=== PATIENT | female | born 1995 | race Two or more races ===

== ENCOUNTER 2017-11-02 12:56 | Inpatient (IN) | payer MEDICAID ==
[~2017-11-02] VITALS: Ht 172.7 cm; Wt 77.6 kg
[2017-11-02] MEDS ORDERED: ONDANSETRON HCL/PF 4 MG/2 ML VIAL ONE (12:59)
[2017-11-02] MEDS ORDERED: ONDANSETRON HCL/PF 4 MG/2 ML VIAL IVP ONE (13:00)
[2017-11-02] MEDS ORDERED: IV NS 0.9% 1,000 ML BAG IV ONE (13:00)
[2017-11-02] MEDS ORDERED: MORPHINE SULFATE INJ 2 MG/ML DISP.SYRIN IV ONE ×2 (13:00→13:30)
[2017-11-02] MEDS ORDERED: MORPHINE SULFATE INJ 4 MG/ML DISP.SYRIN ONE ×2 (13:00→13:27)
--- NOTE | 2017-11-02 13:00 | NUR ---
PT CAME IN WITH C/O DIFFUSED ABD PAIN WITH VOMTING X 2 HOURS. DENIES TRAUMA AND OTEHR SYMPTOMS. SEEN BY COMPUTER GRAPHICS ILLUSTRATOR FOR EVAL. VSS. SAFETY AND COMFORT MEASURES PROVIDED. WILL MONITOR.
[2017-11-02 13:15] LABS: BASOPHILS # (AUTO) 0.1 /CMM (0.0-0.2); BASOPHILS % (AUTO) 0.6 % (0.0-2.0); EOSINOPHILS % (AUTO) 0.2 % (0.0-6.0); HEMATOCRIT 41 % (33-45); LYMPHOCYTES # (AUTO) 1.9 /CMM (0.8-4.8); LYMPHOCYTES % (AUTO) 9.8 % (20.0-44.0); MEAN CORPUSCULAR HEMOGLOBIN 31 PG (26.0-33.0); MEAN CORPUSCULAR HGB CONC 35 g/dl (31.0-36.0); MEAN CORPUSCULAR VOLUME 89 fL (82-100); MONOCYTES # (AUTO) 0.7 /CMM (0.1-1.30); MONOCYTES % (AUTO) 3.6 % (2.0-12.0); NEUTROPHILS # (AUTO) 16.8 /CMM (1.8-8.9); NEUTROPHILS % (AUTO) 85.8 % (43.0-81.0); PLATELET COUNT (AUTO) 410 /CMM (150-450); RDW COEFFICIENT OF VARIATION 12.9 (11.5-15.0); RED BLOOD CELL COUNT(AUTO) 4.58 MIL/uL (4.0-5.2); WHITE BLOOD COUNT (AUTO) 19.5 K/uL (4.3-11.0)
--- NOTE | 2017-11-02 13:15 | NUR ---
IV ACCESS STARTED. BLOOD DRAWN FOR LABS. MEDICATED ORDERED.
[2017-11-02 13:26] LABS: CALCIUM, SERUM 9.9 mg/dL (8.5-10.1); CREATININE 0.5 mg/dL (0.6-1.3); POTASSIUM 4.3 mmol/L (3.5-5.1)
[2017-11-02 13:27] LABS: INR 0.89 (0.87-1.13); PROTHROMBIN TIME 9.3 SECS (9.5-12.7)
[2017-11-02] MEDS ORDERED: FAMOTIDINE/PF INJ 20 MG/2 ML VIAL IV ONE ×2 (13:27→13:30)
[2017-11-02 13:37] LABS: ALBUMIN 4.6 g/dL (3.4-5.0); BILIRUBIN,TOTAL 0.2 mg/dL (0.2-1.0); TOTAL PROTEIN, SERUM 9.1 g/dL (6.4-8.2)
[2017-11-02] MEDS ORDERED: IOHEXOL-300 100 ML VIAL IV ONE (13:50)
[2017-11-02] MEDS ORDERED: IV NS 0.9% 250 ML IV ONE (13:50)
[2017-11-02 14:04] LABS: APPEARANCE,URINE Clear (CLEAR); BILIRUBIN,URINE Negative (NEGATIVE); BLOOD, URINE Negative Ery/uL (NEGATIVE); COLOR,URINE Yellow (YELLOW); KETONES,URINE Negative (NEGATIVE); LEUKOCYTE ESTERASE ,URINE Small (NEGATIVE); NITRITE, URINE Negative (NEGATIVE); PH,URINE 6.5 (5.0-8.0); PROTEIN,URINE 30 mg/dl (NEGATIVE); UGLUCOSE Negative (NEGATIVE); UROBILINOGEN,URINE 0.2 EU/dL (0.2)
--- NOTE | 2017-11-02 14:45 | NUR ---
PT TAKEN TO CT.
[2017-11-02] MEDS ORDERED: HYDROMORPHONE INJ 2 MG/ML DISP.SYRIN ONE ×2 (14:54→16:29)
[2017-11-02 14:56] LABS: BACTERIA,URINE Few /HPF (None Seen); SQUAMOUS EPITHELIAL CELL,UR Few /HPF (None Seen)
[2017-11-02] MEDS ORDERED: HYDROMORPHONE 1 MG/1 ML DISP.SYRIN IV ONE ×2 (15:00→16:30)
--- NOTE | 2017-11-02 15:50 | NUR ---
HEATH AT BS.
--- NOTE | 2017-11-02 16:25 | NUR ---
CALLED , TRANSFERRED CALL TO MARICARMEN GRIFFITH NP.
--- NOTE | 2017-11-02 16:27 | NUR ---
CALLED DR.SAM GARCIA, TRANSFERRED CALL TO MARICARMEN GRIFFITH NP.
[2017-11-02] MEDS ORDERED: METOCLOPRAMIDE HCL 10 MG/2 ML VIAL ONE (16:29)
[2017-11-02] MEDS ORDERED: METOCLOPRAMIDE HCL 10 MG/2 ML VIAL IV ONE (16:30)
[2017-11-02] MEDS ORDERED: IV D5/0.45 NACL 1,000 ML IV ONE (16:30)
[2017-11-02] MEDS ORDERED: PIPERACILLIN /TAZOBACTAM 3.375 G in IV D5W 50 ML IV ONE (16:30)
--- NOTE | 2017-11-02 16:32 | NUR ---
EPIC PAGED, AIRPLANE CAPTAIN
--- NOTE | 2017-11-02 16:50 | NUR ---
AMBULETTE DRIVER AT FOR BLOOD CULTURE DRAW.
[2017-11-02] MEDS ORDERED: MAGNESIUM HYDROXIDE 30 ML UDC PO PRN (17:30)
[2017-11-02] MEDS ORDERED: ZOLPIDEM TARTRATE 5 MG TABLET PO PRN (17:30)
[2017-11-02] MEDS ORDERED: Z GUARD REMEDY 2 OZ OINT TP PRN (17:30)
[2017-11-02] MEDS ORDERED: ACETAMINOPHEN 325 MG TABLET PO PRN (17:30)
[2017-11-02] MEDS ORDERED: MAG HYDROX/AL HYDROX/SIMETH 30 ML UDC PO PRN (17:30)
--- NOTE | 2017-11-02 17:30 | NUR ---
DR. EDWARDS AT BS.
[2017-11-02] MEDS: ENOXAPARIN SODIUM 40 MG/0.4 ML DISP.SYRIN SQ SCH (18:00)
--- NOTE | 2017-11-02 18:05 | NUR ---
REPORT GIVEN TO BETTY PALAFOX FOR MS 317.
--- NOTE | 2017-11-02 18:30 | NUR ---
MS RN NOTES PATIENT ARRIVED ON GURNEY. ALERT, ORIENTED X3 NO SOB OR ACUTE DISTRESS NOTED. PATIENT DENIES ANY PAIN AT THIS TIME. PATIENT ORIENTED TO ROOM , CALL LIGHT WITHIN REACH. BED IN LOW LOCKED POSITION. LOVENOX NOT ADMINISTERED WAITING FOR SURGICAL CONSULT. PATIENT NPO WAITING FOR SURGICAL CONSULT. WILL CONTINUE TO MONITOR.
[2017-11-02] MEDS: IV NS 0.9% 1,000 ML IV PRN (18:47)
--- NOTE | 2017-11-02 19:00 | NUR ---
MS RN NOTES PATIENT IN BED RESTING. DENIES ANY PAIN OR DISCOMFORT. WILL ENDORSE CARE TO PM SHIFT.
--- NOTE | 2017-11-02 19:30 | NUR ---
MS RN OPENING NOTES: RECEIVED PT IN BED AND IS A/OX4. PT HAS IV ON R HAND #20G AND IS BEING INFUSED WITH NS AT 75ML/HR. PT REMAINING NPO FOR NOW. WAITING FOR GYNECOLOGY CONSULT. PER NOTES, NO SURGERY BY DR. PACK FOR NOW. DR Suzi GARCIA ALREADY SAW HER AND NO SURGERY AT THIS TIME. CALL LIGHT WITHIN PT'S REACH. BED KEPT IN LOW, LOCKED POSITION, AND SIDE RAILS X 2 UP. WILL CONTINUE TO MONITOR PT.
--- NOTE | 2017-11-02 19:35 | NUR ---
MS RN NOTES: DR. Desirae GARCIA AT BEDSIDE.
[2017-11-02 20:00] VITALS: BP 115/69
[2017-11-02] MEDS: HYDROMORPHONE INJ 2 MG/ML DISP.SYRIN IV PRN (20:16)
--- NOTE | 2017-11-02 20:18 | NUR ---
MS RN NOTES: PT IS COMPLAINING OF 8/10 PAIN AROUND HER ABDOMINAL AREA. VITAL SIGNS STABLE. PT WAS ADMINISTERED DILAUDID 1MG VIA IV. WILL CONTINUE TO MONITOR PT.
[2017-11-02] MEDS: ONDANSETRON HCL/PF 4 MG/2 ML VIAL IVP PRN (22:18)
--- NOTE | 2017-11-02 22:22 | NUR ---
MS RN NOTES: PT FOUND IN ROOM HAVING A VOMITING EPISODE. PT WAS GIVEN ZOFRAN VIA IV .WILL CONTINUE TO MONITOR PT.
--- NOTE | 2017-11-03 00:10 | NUR ---
MS RN NOTES: SPOKE WITH CHIMNEY BUILDER HELPER CLIFTON CARCAMO TO CONFIRM IF PT CAN BE PUT ON A DIET SINCE DR. Desirae GARCIA SAID NO SURGERY INDICATED FOR NOW. ALSO INFORMED HER THAT PLUMBER APPRENTICE HASN'T SEEN HER FOR TONIGHT.
[2017-11-03 00:25] VITALS: BP 117/61
[2017-11-03] MEDS: HYDROMORPHONE INJ 2 MG/ML DISP.SYRIN IV PRN ×4 (00:26→14:06)
--- NOTE | 2017-11-03 02:48 | NUR ---
MS RN NOTES: LESLEY CARCAMO ON FLOOR. INFORMED HER OF ELEVATED WBC.
--- NOTE | 2017-11-03 02:53 | NUR ---
MS RN NOTES: LESLEY CARCAMO PUT IN ORDERS FOR LEVAQUIN AND FLAGYL.
[2017-11-03] MEDS ORDERED: LEVOFLOXACIN 500 MG /D5W 100ML 100 ML IV ONE (02:56)
[2017-11-03] MEDS: LEVOFLOXACIN 500 MG /D5W 100ML 500 MG in PREMIX 1 EA IV SCH (03:02)
--- NOTE | 2017-11-03 03:07 | NUR ---
MS RN NOTES: PT'S IPHONE BROUGHT TO NURSING STATION TO BE CHARGED.
--- NOTE | 2017-11-03 04:52 | NUR ---
MS RN NOTES: PT'S IPHONE FROM NURSING STATION RETURNED TO PT.
[2017-11-03 05:20] VITALS: BP 131/76
[2017-11-03] MEDS ORDERED: METRONIDAZOLE 500MG/ NS 100ML 100 ML IV ONE (05:20)
[2017-11-03] MEDS: ONDANSETRON HCL/PF 4 MG/2 ML VIAL IVP PRN ×2 (05:28→15:11)
--- NOTE | 2017-11-03 05:30 | NUR ---
MS RN NOTES: PT COMPLAINING OF 10/10 ABDOMINAL AREA. PT SEEN CRYING. VITAL SIGNS CHECKED. PT WAS ADMINISTERED DILAUDID VIA IV. WILL CONTINUE TO MONITOR PT.
--- NOTE | 2017-11-03 05:34 | NUR ---
MS RN NOTES: PT REPORTED THAT SHE HAD YELLOW, LIQUIDY EMESIS. PT WAS ADMINISTERED ZOFRAN VIA IV. WILL CONTINUE TO MONITOR PT.
[2017-11-03] MEDS: METRONIDAZOLE 500MG/ NS 100ML 500 MG in PREMIX 1 EA IV SCH ×3 (05:44→18:30)
[2017-11-03] MEDS ORDERED: HYDROMORPHONE 1 MG/1 ML DISP.SYRIN ONE (06:33)
--- NOTE | 2017-11-03 06:33 | NUR ---
MS RN NOTES: SPOKE TO LESLEY CARCAMO AND INFORMED HER THAT PT JUST GOT DILAUDID 1 MG AN HOUR AGO AND NOW PATIENT IS CRYING OF 10/10 PAIN IN HER ABDOMEN. GOT ONE TIME ORDER FOR DILAUDID 1MG IV. WILL CONTINUE TO MONITOR PT.
--- NOTE | 2017-11-03 06:35 | NUR ---
MS RN NOTES: PT COMPLAINING THAT SHE CANNOT BREATHE. PT WAS PLACED ON 2LPM VIA NC FOR COMFORT MEASURES. WILL CONTINUE TO MONITOR PT.
[2017-11-03 06:40] VITALS: BP 115/67
[2017-11-03] MEDS ORDERED: HYDROMORPHONE 1 MG/1 ML DISP.SYRIN IV ONE (07:00)
--- NOTE | 2017-11-03 07:15 | NUR ---
MS RN CLOSING NOTES: ALL NEEDS WERE ATTENDED AND ANTICIPATED FOR. PT IS ASLEEP AND RESTING IN BED COMFORTABLY. PT HAS 2LPM VIA NC FOR COMFORT MEASURES AND IS TOLERATING WELL. PT HAS IV ON R HAND #20G AND IS BEING INFUSED WITH NS AT 75ML/HR. CALL LIGHT WITHIN PT'S REACH. BED KEPT IN LOW, LOCKED POSITION, AND SIDE RAILS X 2 UP. ENDORSED TO AM NURSE FOR DARSHAN.
[2017-11-03 08:00] VITALS: BP 104/52
--- NOTE | 2017-11-03 08:00 | NUR ---
MS RN OPENING NOTES PATIENT LYING IN BED WATCHING TV, ALERT, ORIENTED . NO ACUTE DISTRESS NOTED. NO SOB NOTED. BREATHING REGULAR EVEN AND UNLABORED. IV ACCES ON RIGHT HAND PATENT AND INTACT. NO REDNESS, NO S/SX OF INFILTRATION NOTED. SAFETY MEASURES IN PLACE. CALL LIGHT PLACED WITHIN REACH. WILL CONTINUE TO MONITOR ACCORDINGLY.
[2017-11-03 08:28] LABS: BASOPHILS % (AUTO) 0.3 % (0.0-2.0); EOSINOPHILS # (AUTO) 0.1 /CMM (0.0-0.7); EOSINOPHILS % (AUTO) 0.5 % (0.0-6.0); HEMATOCRIT 35 % (33-45); LYMPHOCYTES # (AUTO) 2.2 /CMM (0.8-4.8); LYMPHOCYTES % (AUTO) 15.1 % (20.0-44.0); MEAN CORPUSCULAR HEMOGLOBIN 31 PG (26.0-33.0); MEAN CORPUSCULAR HGB CONC 35 g/dl (31.0-36.0); MEAN CORPUSCULAR VOLUME 89 fL (82-100); MONOCYTES # (AUTO) 0.9 /CMM (0.1-1.30); MONOCYTES % (AUTO) 6.2 % (2.0-12.0); NEUTROPHILS # (AUTO) 11.7 /CMM (1.8-8.9); NEUTROPHILS % (AUTO) 77.9 % (43.0-81.0); PLATELET COUNT (AUTO) 310 /CMM (150-450); RDW COEFFICIENT OF VARIATION 13.1 (11.5-15.0); RED BLOOD CELL COUNT(AUTO) 3.88 MIL/uL (4.0-5.2); WHITE BLOOD COUNT (AUTO) 14.9 K/uL (4.3-11.0)
[2017-11-03 08:55] LABS: CREATININE 0.5 mg/dL (0.6-1.3); MAGNESIUM 1.7 mg/dL (1.8-2.4); PHOSPHORUS 3.2 mg/dL (2.5-4.9); POTASSIUM 3.3 mmol/L (3.5-5.1)
[2017-11-03] MEDS: IV NS 0.9% 1,000 ML IV PRN (11:48)
--- NOTE | 2017-11-03 14:22 | NUR ---
RN MS NOTES PT SEEN BY DR. EDWARDS, PLAN OF CARE DISCUSSED WITH PT, VERBALIZED UNDERSTANDING, PER DR. PACK, OK TO DISCHARGE AND FOLLOW UP WITH HER IN THE OFFICE.
[2017-11-03] MEDS ORDERED: POTASSIUM CHLORIDE 20 MEQ TAB.PRT.SR PO ONE (14:30)
[2017-11-03] MEDS: HYDROCODONE/APAP 10/325MG 1 EA TABLET PO SCH ×2 (14:50→22:00)
[2017-11-03] MEDS: Magnesium 1GM/D5W 100ML PREMIX 100 ML IV SCH ×3 (15:08→18:05)
[2017-11-03 16:00] VITALS: BP_SYST 107; BP_SYST 112; BP_DIAS 57; BP_DIAS 60
[2017-11-03] MEDS: HYDROMORPHONE 1 MG/1 ML DISP.SYRIN IV PRN ×2 (18:06→20:50)
[2017-11-03] MEDS: HYDROCODONE/APAP 5/325MG 1 EACH TABLET PO PRN (19:12)
--- NOTE | 2017-11-03 19:18 | NUR ---
RN MS NOTES PT IN BED, AWAKE, ALERT AND ORIENTED, WATCHING TV, PAIN MEDICATION GIVEN FOR PAIN MANAGEMENT, NO SHORTNESS OF BREATH, IV FLUIDS INFUSING WELL, CALL LIGHT PLACED WITHIN REACH, ALL NEEDS ATTENDED.
--- NOTE | 2017-11-03 19:25 | NUR ---
RN OPEN NOTES RECEIVED PATIENT AWAKE IN BED WATCHING TV. A/O X4. NO SIGNS OF DISTRESS OR DISCOMFORT. BREATHING EVEN AND UNLABORED. STATES PAIN 4/10 AT THIS TIME AND TOLERABLE. IV ACCESS IN R HAND WITH FLAGYL INFUSING, PATENT AND INTACT, NO SIGNS OF REDNESS OR INFILTRATION. BED IN LOW LOCKED POSITION WITH SIDE RAILS X2. CALL LIGHT WITHIN REACH. WILL CONTINUE TO MONITOR.
[2017-11-03 20:00] VITALS: BP 120/78
--- NOTE | 2017-11-03 20:50 | NUR ---
RN NOTES ADMINISTERED DILAUDID .5MG ORDERED FOR PAIN 10/10 IN ABD. VSS. WILL CONTINUE TO MONITOR.
[2017-11-03] MEDS: ENOXAPARIN SODIUM 40 MG/0.4 ML DISP.SYRIN SQ SCH (21:00)
[2017-11-04] MEDS: METRONIDAZOLE 500MG/ NS 100ML 500 MG in PREMIX 1 EA IV SCH ×3 (00:48→12:23)
[2017-11-04] MEDS: HYDROMORPHONE 1 MG/1 ML DISP.SYRIN IV PRN ×4 (02:52→12:24)
--- NOTE | 2017-11-04 02:52 | NUR ---
RN NOTES ADMINISTERED DILAUDID .5MG ORDERED FOR PAIN 06/15 IN ABD. BP 127/63 P70. WILL CONTINUE TO MONITOR.
[2017-11-04] MEDS: LEVOFLOXACIN 500 MG /D5W 100ML 500 MG in PREMIX 1 EA IV SCH (02:53)
[2017-11-04] MEDS: ONDANSETRON HCL/PF 4 MG/2 ML VIAL IVP PRN (03:02)
[2017-11-04] MEDS: HYDROCODONE/APAP 10/325MG 1 EA TABLET PO SCH ×2 (05:45→14:30)
[2017-11-04 08:00] VITALS: BP 113/74
--- NOTE | 2017-11-04 08:00 | NUR ---
M/S RN - AM Notes Received patient in bed awake, A/O x 4, no vaginal bleeding, c/o severe abdominal pain, denies n/v, no apparent distress noted. Patient was medicated with Dilaudid 0.5 mg IVP with relief. Pt also verbalized some frustrations regarding hospital stay. Discussed with patient her current treatment plan and was educated regarding pain management. Patient verbalized understanding. All needs attended and met. Will continue to monitor closely.
[2017-11-04] MEDS: HYDROCODONE/APAP 5/325MG 1 EACH TABLET PO PRN (08:48)
[2017-11-04] MEDS ORDERED: AMOX-430 PO (12:27)
--- NOTE | 2017-11-04 13:00 | NUR ---
M/S RN - Notes Patient's sister (Jina) called and updated given.
--- NOTE | 2017-11-04 15:40 | NUR ---
M/S RN - Discharge Patient discharged to home in stable condition, no vaginal bleeding, abdominal pain well controlled at the moment, not in any form of distress. Reviewed discharge instructions with patient and she verbalized full understanding of all teachings including medication management, f/u with Dr. Wren in 3 days, and go to the nearest ER for worsening condition. Written prescription for [place] and Augmentin given to patient. Heplock removed on the right hand with catheter tip intact, no complications noted. Skin is intact except for some scratches on the neck and cheeks, she refused photo to be taken. All belongings with the patient and she denies any missing items. Accompanied to the lobby via wheelchair and transported by private car.
== END 2017-11-04 15:45 | disposition home or self-care (01) | DRG 532 ==
LOC: ER 12:58 → MED 17:25
PROVIDERS: ADMIT Internal Medicine; ATTEND Internal Medicine
DX: D27.0 Benign neoplasm of right ovary (principal); N39.0 Urinary tract infection, site not specified; F41.9 Anxiety disorder, unspecified; M46.1 Sacroiliitis, not elsewhere classified; D72.829 Elevated white blood cell count, unspecified; R93.5 Abnormal findings on diagnostic imaging of other abdominal regions, including retroperitoneum
CPT/HCPCS: 36415; 76856-TC; 80048-TC; 80076-TC; 81000-TC; 83690-TC; 83735-TC; 84100-TC; 84703-TC; 85025-TC; 85730-TC; 87040-TC; 87081-TC; 87086-TC; A4216; A4606; J1170; J1650; J1956; J2270; J2405; J2543; J2765; J3475; J3490; J7030; J7050; J7060; Q9967; Z7610